=== PATIENT | male | born 1970 | race African-American/Black ===

== ENCOUNTER 2017-10-19 08:48 | Inpatient (IN) | payer OTHER ==
[2017-10-19 10:48] VITALS: BMI 39.7
--- NOTE | 2017-10-19 11:34 | HP ---
COWS - Scale Resting Pulse: 0= [place] 80 or Below Sweatin=Flushed/Facial Moisture Restless Observation: 1= Difficult to Sit Still Pupil Size: 0= Normal to Room Light Bone or Joint Aches: 2= Severe Diffuse Aches Runny Nose/ Eye Tearin= Runny Nose/Eyes GI Upset > 30mins: 1= Stomach Cramp Tremor Observation: 1= Tremor [place], Not Seen Yawning Observation: 1= 1-2x During Session Anxiety or Irritability: 2=Irritable/Anxious Goose Flesh Skin: 0=Smooth Skin COWS Score: 12 CIWA Score - CIWA Score Nausea/Vomitin-Mild Nausea/No Vomiting Muscle Tremors: 1-None Visible, but [place] Anxiety: 2 Agitation: 1-Slight > Activity Paroxysmal Sweats: 1-Minimal Palms Moist Orientation: 1-Uncertain about Date Tacttile Disturbances: 2-Mild Itch/Numbness/Burn Auditory Disturbances: 0-None Visual Disturbances: 0-None Headache: 3-Moderate CIWA-Ar Total Score: 12 Admission [facility] - HPI Chief Complaint: Patient presents for Heroin withdrawal symptoms. Allergies/Adverse Reactions: Allergies Allergy/AdvReac Type Severity Reaction Status Date / Time No Known Allergies Allergy Verified 10/19/17 10:04 History of Present Illness: Patient presents for Heroin Withdrawal symptoms. Started using heroin at age 22. Uses up to 30-35 bags daily. Sniffs heroin and denies injecting. Was treated last night at [facility] for overdose. States he was given Narcan. D/C and sent to [facility] for detox. Last detox attempt was in 2013 at [facility]. Also reports heroin mixed with cocaine, opiates and xanax. Denies drinking ETOH. Has history of peripheral neuropathy and treated with Gabapentin. Denies any history of seizures. No suicide attempts or suicide ideation. Exam Limitations: No Limitations - Ebola screening Have you traveled outside of the country in the last 21 days: No Have you had contact with anyone from an Ebola affected area: No Have you been sick,other than usual withdrawal symptoms: No - Review of Systems Constitutional: Night Sweats, Changes in sleep, Weight Stable EENT: reports: Nose Congestion Respiratory: reports: No Symptoms reported Cardiac: reports: No Symptoms Reported GI: reports: Poor Fluid Intake, Indigestion, Abdominal cramping : reports: No Symptoms Reported Musculoskeletal: reports: Joint Pain, Muscle Pain Integumentary: reports: Flushing, Sweating Neuro: reports: Tingling, Tremors Endocrine: reports: Increased Thirst Hematology: reports: No Symptoms Reported Psychiatric: reports: Anxious, Depressed, Disorientated (Unable to provide todays date.) Patient History - Patient Medical History Hx Anemia: No Hx Asthma: No Hx Chronic Obstructive Pulmonary Disease (COPD): No Hx Cancer: No Hx Cardiac Disorders: No Hx Congestive Heart Failure: No Hx Hypertension: No Hx Hypercholesterolemia: No Hx Pacemaker: No HX Cerebrovascular Accident: No Hx Seizures: No Hx Dementia: No Hx Diabetes: No Hx Gastrointestinal Disorders: No Hx Liver Disease: No Hx Genitourinary Disorders: No Hx Sexually Transmitted Disorders: No Hx Renal Disease (ESRD): No Hx Thyroid Disease: No Hx Human Immunodeficiency Virus (HIV): No Hx Hepatitis C: No Hx Depression: Yes Hx Suicide Attempt: No Hx Bipolar Disorder: No Hx Schizophrenia: No - Patient Surgical History Past Surgical History: No Hx Neurologic Surgery: No Hx Cataract Extraction: No Hx Cardiac Surgery: No Hx Lung Surgery: No Hx Breast Surgery: No Hx Breast Biopsy: No Hx Abdominal Surgery: No Hx Appendectomy: No Hx Cholecystectomy: No Hx Genitourinary Surgery: No Hx Section: No Hx Orthopedic Surgery: No Anesthesia Reaction: No - PPD History Previous Implant?: Yes Documented Results: Positive w/o proof Implanted On Prior [facility] Admission?: No - Smoking Cessation Smoking history: Current every day smoker Have you smoked in the past 12 months: Yes Aproximately how many cigarettes per day: 2 Hx Chewing Tobacco Use: No Initiated information on smoking cessation: Yes 'Breaking Loose' booklet given: 10/19/17 - Substance & Tx. History Hx Substance Use: Yes Substance Use Type: Cocaine, Heroin, Opiates Hx Substance Use Treatment: Yes - Substances Abused Heroin Route: Injection Frequency: Daily Amount used: 32 bags Age of first use: 23 Date of Last Use: 10/18/17 Cocaine Route: Inhalation Frequency: Daily Amount used: $10 Age of first use: 16 Date of Last Use: 10/17/17 Family Disease History - Family Disease History Family Disease History: Other: Father (HEROIN), Mother (ALCOHOL,COCAINE) Admission Physical Exam [facility] - Vital Signs Vital Signs: Vital Signs - 24 hr 10/19/17 10:44 Temperature 97.4 F L Pulse Rate 80 Respiratory 20 Rate Blood Pressure 121/60 - Physical General Appearance: Yes: Disheveled, Obese, Tremorous, Sweating, Anxious HEENTM: Yes: Hearing grossly Normal, Normocephalic, JULIAN, Nasal Congestion Respiratory: Yes: Within Normal Limits, Chest Non-Tender, Lungs Clear, Normal Breath Sounds Neck: Yes: Within Normal Limits, No masses,lesions,Nodules, Supple Breast: Yes: Breast Exam Deferred Cardiology: Yes: Within Normal Limits, Regular Rhythm, Regular Rate, S1, S2 Abdominal: Yes: Normal Bowel Sounds, Non Tender, Soft Genitourinary: Yes: Within Normal Limits Back: Yes: Muscle Spasm Musculoskeletal: Yes: Back pain, Muscle Pain Extremities: Yes: Normal Range of Motion, Tremors Neurological: Yes: Numbness, Disoriented (unable to provide todays date), Depressed Affect Integumentary: Yes: Normal Color, [place] Lymphatic: Yes: Within Normal Limits - Diagnostic (1) Peripheral neuropathy Current Visit: Yes Status: Acute (2) Cocaine dependence Current Visit: Yes Status: Active (3) Opioid dependence Current Visit: Yes Status: Active (4) Anxiety Current Visit: Yes Status: Acute (5) Depressed mood Current Visit: Yes Status: Acute (6) Positive PPD Current Visit: Yes Status: Acute Cleared for Admission [facility] - Detox or Rehab [facility] Level of Care: Medically Managed Detox Regimen/Protocol: Methadone [facility] Breath Alcohol Content Breath Alcohol Content: 0 Urine Drug Screen - Results Drug Screen Negative: No Urine Drug Screen Results: RIVAS-Cocaine, OPI-Opiates, BZO-Benzodiazepines Inpatient Rehab Admission - Initial Determination Are CD services needed?: Yes Free of communicable disease: Yes Not in need of hospitalization: Yes - Rehab Admission Criteria Previous failed treatment: Yes Poor recovery environment: Yes Comorbidities: Yes Lacks judgement: Yes
[2017-10-19] MEDS ORDERED: LOPERAMIDE HCL 2 MG CAPSULE PO PRN (11:39)
[2017-10-19] MEDS ORDERED: P-EPHED 60MG/TRIPROLIDI 2.5MG TABLET PO PRN (11:39)
[2017-10-19] MEDS ORDERED: IBUPROFEN 400 MG TABLET (FP) PO PRN (11:39)
[2017-10-19] MEDS ORDERED: MAGNESIUM HYDROX 2400MG/30ML ORAL SUSPENSION 30 ML CUP PO PRN (11:39)
[2017-10-19] MEDS ORDERED: MENTHOL/PHENOL 1 EACH UD MM PRN (11:39)
[2017-10-19] MEDS ORDERED: guaiFENesin/D-METHORPHAN HB 10 ML UNIT-DOSE CUPS PO PRN (11:39)
[2017-10-19] MEDS ORDERED: MAGNESIUM CITRATE 300 ML BOTTLE PO PRN (11:39)
[2017-10-19] MEDS ORDERED: ACETAMINOPHEN 325 MG TABLET (FP) PO PRN (11:39)
[2017-10-19] MEDS ORDERED: MAG HYDROX/AL HYDROX/SIMETH 30 ML UNIT-DOSE CUP PO PRN (11:39)
[2017-10-19] MEDS ORDERED: NICOTINE POLACRILEX 2 MG GUM BC PRN (11:39)
[2017-10-19] MEDS ORDERED: METHADONE HCL 10 MG TABLET (FOR DETOX USE ONLY) PO ONE ×2 (14:00→23:00)
[2017-10-19] MEDS: GABAPENTIN 300 MG CAPSULE (FP) PO SCH ×2 (15:09→22:38)
[2017-10-19] MEDS: diazePAM 5 MG TABLET PO PRN ×2 (15:09→22:38)
--- NOTE | 2017-10-19 15:50 | CONSULT ---
[facility] Psychiatric Consult - Data Date of interview: 10/19/17 Admission source: [facility] Identifying data: Readmission to [facility] for this 47 y/o AA male seeking detox treatment on for heroin and cocaine (crack) dependence.Patient is single without children,homeless,unemployed and supported on welfare. Substance Abuse History: Discussed with the patient.Patient endorses a 25 year history of heroin abuse (snorts up to 30-40 bags of heroin a day) and 30 years of crack abuse (spends 10 dollars a day). More details in current [facility] report : Smoking history: Current every day smoker. Have you smoked in the past 12 months: Yes. Aproximately how many cigarettes per day: 2. Hx Chewing Tobacco Use: No. Initiated information on smoking cessation: Yes. 'Breaking Loose' booklet given: 10/19/17. - Substance & Tx. History. Hx Substance Use: Yes. Substance Use Type: Cocaine, Heroin, Opiates. Hx Substance Use Treatment: Yes. - Substances Abused. Heroin. Route: Injection. Frequency: Daily. Amount used: 32 bags. Age of first use: 23. Date of Last Use: 10/18/17. Cocaine. Route: Inhalation. Frequency: Daily. Amount used: $10. Age of first use: 16. Date of Last Use: 10/17/17 Medical History: Obesity and peripheral neuropathy. Psychiatric History: Patient denies history of psychiatric hospitalizations.No OPD care.Mr Shipman denies having a mental disorder and he declares that he only gets prescribed hydroxyzine for insomnia.patient denies history of suicide attempts. Physical/Sexual Abuse/Trauma History: Not discussed in this session (patient not cooperative). Additional Comment: Urine Drug Screen Results: RIVAS-Cocaine, OPI-Opiates, BZO- Benzodiazepines.Noted. Mental Status Exam - Mental Status Exam Alert and Oriented to: Time, Place, Person Cognitive Function: Grossly Intact Patient Appearance: Unkempt, Disheveled (malodorous) Mood: Nervous, Withdrawn, Irritable Affect: Mood Congruent Patient Behavior: Fatigued, Uncooperative, Guarded Speech Pattern: Clear Voice Loudness: Normal Thought Process: Goal Oriented Thought Disorder: Bizarre Hallucinations: Denies Suicidal Ideation: Denies Homicidal Ideation: Denies Insight/Judgement: Poor Sleep: Poorly, Difficulty falling asleep Appetite: Good (observed eating his meal on admission) Muscle strength/Tone: Normal Gait/Station: Normal Psychiatric Findings - Problem List ([place] 1, 2,3) (1) Opioid dependence Current Visit: Yes Status: Active (2) Cocaine dependence Current Visit: Yes Status: Active (3) Nicotine dependence Current Visit: Yes Status: Acute (4) Substance induced mood disorder Current Visit: Yes Status: Acute (5) Insomnia Current Visit: Yes Status: Acute - Initial Treatment Plan Initial Treatment Plan: Psychoeducation.Records revisited.Detoxification initiated.Observation.
[2017-10-19] MEDS ORDERED: MELATONIN 5 MG TABLETS PO PRN (22:00)
[2017-10-19 22:10] LABS: URINE APPEARANCE SLCLOUDY; URINE BILIRUBIN NEGATIVE (<2.0 mg/dL); URINE BLOOD NEGATIVE (NEGATIVE); URINE COLOR AMBER; URINE GLUCOSE (UA) NEGATIVE (NEGATIVE); URINE KETONE NEGATIVE (NEGATIVE); URINE NITRITE NEGATIVE (NEGATIVE); URINE PROTEIN NEGATIVE (NEGATIVE); URINE UROBILINOGEN 4.0 E.U/dl mg/dL (0.2-1.0)
[2017-10-19 22:11] LABS: URINE LEUK ESTERASE 2+ (NEGATIVE)
[2017-10-19 22:16] LABS: CALCIUM OXALATE CRYSTALS FEW /hpf (NONE SEEN); EPI CELLS RARE /HPF (FEW); URINE MUCUS MANY
[2017-10-19] MEDS: THIAMINE HCL 100 MG TABLET (FP) PO SCH (22:38)
[2017-10-20] MEDS: diazePAM 5 MG TABLET PO PRN ×4 (05:48→22:36)
[2017-10-20] MEDS: GABAPENTIN 300 MG CAPSULE (FP) PO SCH ×3 (05:48→22:36)
[2017-10-20] MEDS ORDERED: METHADONE HCL 10 MG TABLET (FOR DETOX USE ONLY) PO ONE (10:00)
[2017-10-20 10:20] LABS: HEMATOCRIT 40.8 % (35.4-49); HEMOGLOBIN 14.1 GM/dL (11.7-16.9); MCH 32.6 pg (25.7-33.7); MCHC 34.6 g/dl (32.0-35.9); MEAN CELL VOLUME 94.4 fl (80-96); MEAN PLT VOLUME 9.4 fl (7.5-11.1); PLATELET COUNT 244 K/MM3 (134-434); RBC 4.32 M/mm3 (4.00-5.60); WHITE BLOOD COUNT 7.7 K/mm3 (4.0-10.0)
[2017-10-20] MEDS: NICOTINE 21 MG/24 HOURS TOPICAL PATCH TD SCH (10:23)
[2017-10-20] MEDS: PRENATAL VITAMINS W/ FOLIC ACID TABLET (FP) PO SCH (10:23)
[2017-10-20] MEDS: hydrOXYzine PAMOATE 50 MG CAPSULE (FP) PO PRN ×3 (10:25→22:37)
[2017-10-20 11:32] LABS: ALBUMIN 3.6 g/dl (3.4-5.0); ANION GAP 8 (8-16); BLOOD UREA NITROGEN 15 mg/dL (7-18); CHLORIDE 105 mmol/L (98-107); CO2 26 mmol/L (21-32); GLUCOSE,RANDOM 85 mg/dL (74-106); POTASSIUM 5.3 mmol/L (3.5-5.1); SODIUM 139 mmol/L (136-145)
[2017-10-20 11:35] LABS: ALK PHOS 127 U/L (45-117); BILIRUBIN,TOTAL 0.5 mg/dL (0.2-1.0); CREATININE 0.9 mg/dL (0.7-1.3); SGOT/AST 75 U/L (15-37); SGPT/ALT 75 U/L (12-78); TOT PROT 7.4 g/dl (6.4-8.2)
--- NOTE | 2017-10-20 11:44 | EKG ---
Test Reason : Blood Pressure : / mmHG Vent. Rate : 068 BPM Atrial Rate : 068 BPM P-R Int : 220 ms QRS Dur : 100 ms QT Int : 430 ms P-R-T Axes : 026 -04 003 degrees QTc Int : 457 ms SINUS RHYTHM WITH 1ST DEGREE A-V BLOCK OTHERWISE NORMAL ECG WHEN COMPARED WITH ECG OF 19-OCT-2017 15:16, QT HAS SHORTENED Confirmed by MARII KOWALSKI MD ([id number]) on 10/20/2017 11:44:08 AM Referred By: Confirmed By:MARII KOWALSKI MD
--- NOTE | 2017-10-20 11:45 | EKG ---
Test Reason : Blood Pressure : / mmHG Vent. Rate : 091 BPM Atrial Rate : 091 BPM P-R Int : 194 ms QRS Dur : 102 ms QT Int : 454 ms P-R-T Axes : 062 002 013 degrees QTc Int : 558 ms NORMAL SINUS RHYTHM PROLONGED QT ABNORMAL ECG NO PREVIOUS ECGS AVAILABLE Confirmed by MARII KOWALSKI MD ([id number]) on 10/20/2017 11:44:58 AM Referred By: Confirmed By:MARII KOWALSKI MD
--- NOTE | 2017-10-20 14:14 | PN ---
[facility] CIWA - CIWA Score Nausea/Vomitin-No Nausea/No Vomiting Muscle Tremors: 4-Moderate,w/Arms Extend Anxiety: 4-Mod. Anxious/Guarded Paroxysmal Sweats: 1-Minimal Palms Moist Tacttile Disturbances: 3-Moderate Itch/Numb/Burn Auditory Disturbances: 0-None Visual Disturbances: 0-None Headache: 0-None Present S COWS - Scale Resting Pulse: 0= [place] 80 or Below Sweatin= Chills/Flushing Restless Observation: 0= Sits Still Pupil Size: 2= Moderately Dilated Bone or Joint Aches: 4=Acute Joint/Muscle Pain Runny Nose/ Eye Tearin= Nasal Congestion GI Upset > 30mins: 0= None Tremor Observation of Outstretched Hands: 2= Slight Tremor Visible Yawning Observation: 1= 1-2x During Session Anxiety or Irritability: 2=Irritable/Anxious Goose Flesh Skin: 0=Smooth Skin COWS Score: 13 S Progress Note (SOAP) Subjective: ANXIETY,SLIGHT TREMORS,SWEATS,INTERMITTENT SLEEP. Objective: 10/20/17 15:17 Vital Signs Temperature 96.7 F L 10/20/17 13:26 Pulse Rate 79 10/20/17 13:26 Respiratory Rate 18 10/20/17 13:26 Blood Pressure 119/64 10/20/17 13:26 O2 Sat by Pulse Oximetry (%) Laboratory Last Values WBC 7.7 K/mm3 (4.0-10.0) 10/20/17 06:00 RBC 4.32 M/mm3 (4.00-5.60) 10/20/17 06:00 Hgb 14.1 GM/dL (11.7-16.9) 10/20/17 06:00 Hct 40.8 % (35.4-49) 10/20/17 06:00 MCV 94.4 fl (80-96) 10/20/17 06:00 MCH 32.6 pg (25.7-33.7) 10/20/17 06:00 MCHC 34.6 g/dl (32.0-35.9) 10/20/17 06:00 RDW 13.0 % (11.9-15.9) 10/20/17 06:00 Plt Count 244 K/MM3 (134-434) 10/20/17 06:00 MPV 9.4 fl (7.5-11.1) 10/20/17 06:00 Sodium 139 mmol/L (136-145) 10/20/17 06:00 Potassium 5.3 mmol/L (3.5-5.1) H D 10/20/17 06:00 Chloride 105 mmol/L (98-107) 10/20/17 06:00 Carbon Dioxide 26 mmol/L (21-32) 10/20/17 06:00 Anion Gap 8 (8-16) 10/20/17 06:00 BUN 15 mg/dL (7-18) D 10/20/17 06:00 Creatinine 0.9 mg/dL (0.7-1.3) D 10/20/17 06:00 Creat Clearance w eGFR > 60 (>60) 10/20/17 06:00 Random Glucose 85 mg/dL (74-106) D 10/20/17 06:00 Calcium 9.0 mg/dL (8.5-10.1) 10/20/17 06:00 Total Bilirubin 0.5 mg/dL (0.2-1.0) D 10/20/17 06:00 AST 75 U/L (15-37) H D 10/20/17 06:00 ALT 75 U/L (12-78) D 10/20/17 06:00 Alkaline Phosphatase 127 U/L (45-117) H 10/20/17 06:00 Total Protein 7.4 g/dl (6.4-8.2) 10/20/17 06:00 Albumin 3.6 g/dl (3.4-5.0) 10/20/17 06:00 Urine Color Emma 10/19/17 21:00 Urine Appearance Slcloudy 10/19/17 21:00 Urine pH 7.0 (5.0-8.0) D 10/19/17 21:00 Ur Specific [place] 1.028 (1.001-1.035) 10/19/17 21:00 Urine Protein Negative (NEGATIVE) 10/19/17 21:00 Urine Glucose (UA) Negative (NEGATIVE) 10/19/17 21:00 Urine Ketones Negative (NEGATIVE) 10/19/17 21:00 Urine Blood Negative (NEGATIVE) 10/19/17 21:00 Urine Nitrite Negative (NEGATIVE) 10/19/17 21:00 Urine Bilirubin Negative (<2.0 mg/dL) 10/19/17 21:00 Urine Urobilinogen 4.0 e.u/dl mg/dL (0.2-1.0) 10/19/17 21:00 Ur Leukocyte Esterase 2+ (NEGATIVE) H 10/19/17 21:00 Urine WBC (Auto) 46 /hpf (3-5) 10/19/17 21:00 Urine RBC (Auto) 7 /hpf (0-3) 10/19/17 21:00 Ur Epithelial Cells Rare /HPF (FEW) 10/19/17 21:00 Calcium Oxalate Crystal Few /hpf (NONE SEEN) 10/19/17 21:00 Urine Mucus Many 10/19/17 21:00 RPR Titer Nonreactive (NONREACTIVE) 10/20/17 06:00 LABS NOTED REPEAT UA;UC ORDERED REPEAT k+ ORDERED Assessment: 10/20/17 15:18 WITHDRAWAL SX BORDERLINE HYPERKALEMIA Plan: CONTINUE DETOX INCREASE PO FLUIDS REPEAT K+ ;UA AND UC
[2017-10-20 17:51] LABS: URINE APPEARANCE CLEAR; URINE BILIRUBIN NEGATIVE (<2.0 mg/dL); URINE BLOOD NEGATIVE (NEGATIVE); URINE COLOR LTYELLOW; URINE GLUCOSE (UA) NEGATIVE (NEGATIVE); URINE KETONE NEGATIVE (NEGATIVE); URINE LEUK ESTERASE NEGATIVE (NEGATIVE); URINE NITRITE NEGATIVE (NEGATIVE); URINE PROTEIN NEGATIVE (NEGATIVE); URINE UROBILINOGEN 4.0 E.U/dl mg/dL (0.2-1.0)
[2017-10-20] MEDS: THIAMINE HCL 100 MG TABLET (FP) PO SCH (22:36)
[2017-10-21] MEDS: hydrOXYzine PAMOATE 50 MG CAPSULE (FP) PO PRN ×2 (05:55→10:32)
[2017-10-21] MEDS: GABAPENTIN 300 MG CAPSULE (FP) PO SCH ×3 (05:55→22:14)
[2017-10-21] MEDS: diazePAM 5 MG TABLET PO PRN ×2 (08:23→14:23)
[2017-10-21] MEDS ORDERED: METHADONE HCL 5 MG TABLET (FOR DETOX USE ONLY) PO ONE (10:00)
[2017-10-21] MEDS: PRENATAL VITAMINS W/ FOLIC ACID TABLET (FP) PO SCH (10:30)
[2017-10-21] MEDS: NICOTINE 21 MG/24 HOURS TOPICAL PATCH TD SCH (10:30)
--- NOTE | 2017-10-21 12:24 | PN ---
S CIWA - CIWA Score Nausea/Vomitin-No Nausea/No Vomiting Muscle Tremors: 3 Anxiety: 4-Mod. Anxious/Guarded Agitation: 3 Paroxysmal Sweats: No Perspiration Orientation: 0-Oriented Tacttile Disturbances: 3-Moderate Itch/Numb/Burn Auditory Disturbances: 0-None Visual Disturbances: 0-None Headache: 0-None Present CIWA-Ar Total Score: 13 BHS COWS - Scale Resting Pulse: 0= [place] 80 or Below Sweatin= Chills/Flushing Restless Observation: 3= Extraneous Movement Pupil Size: 2= Moderately Dilated Bone or Joint Aches: 4=Acute Joint/Muscle Pain Runny Nose/ Eye Tearin= None GI Upset > 30mins: 0= None Tremor Observation of Outstretched Hands: 1= Tremor [place], Not Seen Yawning Observation: 1= 1-2x During Session Anxiety or Irritability: 2=Irritable/Anxious Goose Flesh Skin: 0=Smooth Skin COWS Score: 14 S Progress Note (SOAP) Subjective: ANXIETY,IRRITABILITY,SWEATS,INTERMITTENT SLEEP Objective: 10/21/17 12:32 Vital Signs Temperature 97.1 F L 10/21/17 09:18 Pulse Rate 78 10/21/17 09:18 Respiratory Rate 18 10/21/17 09:18 Blood Pressure 106/77 10/21/17 09:18 O2 Sat by Pulse Oximetry (%) Laboratory Last Values WBC 7.7 K/mm3 (4.0-10.0) 10/20/17 06:00 RBC 4.32 M/mm3 (4.00-5.60) 10/20/17 06:00 Hgb 14.1 GM/dL (11.7-16.9) 10/20/17 06:00 Hct 40.8 % (35.4-49) 10/20/17 06:00 MCV 94.4 fl (80-96) 10/20/17 06:00 MCH 32.6 pg (25.7-33.7) 10/20/17 06:00 MCHC 34.6 g/dl (32.0-35.9) 10/20/17 06:00 RDW 13.0 % (11.9-15.9) 10/20/17 06:00 Plt Count 244 K/MM3 (134-434) 10/20/17 06:00 MPV 9.4 fl (7.5-11.1) 10/20/17 06:00 Sodium 139 mmol/L (136-145) 10/20/17 06:00 Potassium 4.5 mmol/L (3.5-5.1) 10/20/17 14:50 Chloride 105 mmol/L (98-107) 10/20/17 06:00 Carbon Dioxide 26 mmol/L (21-32) 10/20/17 06:00 Anion Gap 8 (8-16) 10/20/17 06:00 BUN 15 mg/dL (7-18) D 10/20/17 06:00 Creatinine 0.9 mg/dL (0.7-1.3) D 10/20/17 06:00 Creat Clearance w eGFR > 60 (>60) 10/20/17 06:00 Random Glucose 85 mg/dL (74-106) D 10/20/17 06:00 Calcium 9.0 mg/dL (8.5-10.1) 10/20/17 06:00 Total Bilirubin 0.5 mg/dL (0.2-1.0) D 10/20/17 06:00 AST 75 U/L (15-37) H D 10/20/17 06:00 ALT 75 U/L (12-78) D 10/20/17 06:00 Alkaline Phosphatase 127 U/L (45-117) H 10/20/17 06:00 Total Protein 7.4 g/dl (6.4-8.2) 10/20/17 06:00 Albumin 3.6 g/dl (3.4-5.0) 10/20/17 06:00 Urine Color Ltyellow 10/20/17 14:50 Urine Appearance Clear 10/20/17 14:50 Urine pH 7.0 (5.0-8.0) 10/20/17 14:50 Ur Specific [place] 1.016 (1.001-1.035) 10/20/17 14:50 Urine Protein Negative (NEGATIVE) 10/20/17 14:50 Urine Glucose (UA) Negative (NEGATIVE) 10/20/17 14:50 Urine Ketones Negative (NEGATIVE) 10/20/17 14:50 Urine Blood Negative (NEGATIVE) 10/20/17 14:50 Urine Nitrite Negative (NEGATIVE) 10/20/17 14:50 Urine Bilirubin Negative (<2.0 mg/dL) 10/20/17 14:50 Urine Urobilinogen 4.0 e.u/dl mg/dL (0.2-1.0) 10/20/17 14:50 Ur Leukocyte Esterase Negative (NEGATIVE) 10/20/17 14:50 Urine WBC (Auto) 46 /hpf (3-5) 10/19/17 21:00 Urine RBC (Auto) 7 /hpf (0-3) 10/19/17 21:00 Ur Epithelial Cells Rare /HPF (FEW) 10/19/17 21:00 Calcium Oxalate Crystal Few /hpf (NONE SEEN) 10/19/17 21:00 Urine Mucus Many 10/19/17 21:00 RPR Titer Nonreactive (NONREACTIVE) 10/20/17 06:00 Laboratory Tests 10/19/17 10/20/17 10/20/17 21:00 06:00 06:00 WBC 7.7 RBC 4.32 Hgb 14.1 Hct 40.8 MCV 94.4 MCH 32.6 MCHC 34.6 RDW 13.0 Plt Count 244 MPV 9.4 Sodium 139 Potassium 5.3 H D Chloride 105 Carbon Dioxide 26 Anion Gap 8 BUN 15 D Creatinine 0.9 D Creat Clearance w eGFR > 60 Random Glucose 85 D Calcium 9.0 Total Bilirubin 0.5 D AST 75 H D ALT 75 D Alkaline Phosphatase 127 H Total Protein 7.4 Albumin 3.6 Urine Color Emma Urine Appearance Slcloudy Urine pH 7.0 D Ur Specific [place] 1.028 Urine Protein Negative Urine Glucose (UA) Negative Urine Ketones Negative Urine Blood Negative Urine Nitrite Negative Urine Bilirubin Negative Urine Urobilinogen 4.0 e.u/dl Ur Leukocyte Esterase 2+ H Urine WBC (Auto) 46 Urine RBC (Auto) 7 Ur Epithelial Cells Rare Calcium Oxalate Crystal Few Urine Mucus Many RPR Titer 10/20/17 10/20/17 10/20/17 06:00 14:50 14:50 WBC RBC Hgb Hct MCV MCH MCHC RDW Plt Count MPV Sodium Potassium 4.5 Chloride Carbon Dioxide Anion Gap BUN Creatinine Creat Clearance w eGFR Random Glucose Calcium Total Bilirubin AST ALT Alkaline Phosphatase Total Protein Albumin Urine Color Ltyellow Urine Appearance Clear Urine pH 7.0 Ur Specific [place] 1.016 Urine Protein Negative Urine Glucose (UA) Negative Urine Ketones Negative Urine Blood Negative Urine Nitrite Negative Urine Bilirubin Negative Urine Urobilinogen 4.0 e.u/dl Ur Leukocyte Esterase Negative Urine WBC (Auto) Urine RBC (Auto) Ur Epithelial Cells Calcium Oxalate Crystal Urine Mucus RPR Titer Nonreactive UA WNL UC RESULT PENDING REPEAT K+ = 4.5 CORRECTED CXR = NO ACUTE PATHOLOGY. NO CHANGE. Assessment: 10/21/17 12:32 WITHDRAWAL SX Plan: CONTINUE DETOX INCREASE PO FLUIDS
[2017-10-21] MEDS: THIAMINE HCL 100 MG TABLET (FP) PO SCH (22:14)
[2017-10-22] MEDS: GABAPENTIN 300 MG CAPSULE (FP) PO SCH ×3 (05:51→22:32)
[2017-10-22] MEDS: diazePAM 5 MG TABLET PO PRN ×2 (05:51→10:18)
[2017-10-22] MEDS ORDERED: METHADONE HCL 5 MG TABLET (FOR DETOX USE ONLY) PO ONE (10:00)
[2017-10-22] MEDS: PRENATAL VITAMINS W/ FOLIC ACID TABLET (FP) PO SCH (10:18)
[2017-10-22] MEDS: NICOTINE 21 MG/24 HOURS TOPICAL PATCH TD SCH (10:19)
[2017-10-22] MEDS: hydrOXYzine PAMOATE 50 MG CAPSULE (FP) PO PRN ×2 (12:14→22:33)
--- NOTE | 2017-10-22 17:35 | PN ---
BHS Progress Note (SOAP) Subjective: Body Aches, Fatigue Anxious. Objective: PATIENT A & O X 2 (UNCERTAIN ABOUT CURRENT DAY/ DATE. NO ACUTE DISTRESS. 10/22/17 17:33 Vital Signs Temperature 96.3 F L 10/22/17 17:24 Pulse Rate 65 10/22/17 17:24 Respiratory Rate 18 10/22/17 17:24 Blood Pressure 104/56 10/22/17 17:24 O2 Sat by Pulse Oximetry (%) Laboratory Tests 10/19/17 10/20/17 10/20/17 21:00 06:00 06:00 WBC 7.7 RBC 4.32 Hgb 14.1 Hct 40.8 MCV 94.4 MCH 32.6 MCHC 34.6 RDW 13.0 Plt Count 244 MPV 9.4 Sodium 139 Potassium 5.3 H D Chloride 105 Carbon Dioxide 26 Anion Gap 8 BUN 15 D Creatinine 0.9 D Creat Clearance w eGFR > 60 Random Glucose 85 D Calcium 9.0 Total Bilirubin 0.5 D AST 75 H D ALT 75 D Alkaline Phosphatase 127 H Total Protein 7.4 Albumin 3.6 Urine Color Emma Urine Appearance Slcloudy Urine pH 7.0 D Ur Specific [place] 1.028 Urine Protein Negative Urine Glucose (UA) Negative Urine Ketones Negative Urine Blood Negative Urine Nitrite Negative Urine Bilirubin Negative Urine Urobilinogen 4.0 e.u/dl Ur Leukocyte Esterase 2+ H Urine WBC (Auto) 46 Urine RBC (Auto) 7 Ur Epithelial Cells Rare Calcium Oxalate Crystal Few Urine Mucus Many RPR Titer 10/20/17 10/20/17 10/20/17 06:00 14:50 14:50 WBC RBC Hgb Hct MCV MCH MCHC RDW Plt Count MPV Sodium Potassium 4.5 Chloride Carbon Dioxide Anion Gap BUN Creatinine Creat Clearance w eGFR Random Glucose Calcium Total Bilirubin AST ALT Alkaline Phosphatase Total Protein Albumin Urine Color Ltyellow Urine Appearance Clear Urine pH 7.0 Ur Specific [place] 1.016 Urine Protein Negative Urine Glucose (UA) Negative Urine Ketones Negative Urine Blood Negative Urine Nitrite Negative Urine Bilirubin Negative Urine Urobilinogen 4.0 e.u/dl Ur Leukocyte Esterase Negative Urine WBC (Auto) Urine RBC (Auto) Ur Epithelial Cells Calcium Oxalate Crystal Urine Mucus RPR Titer Nonreactive LABS NOTED. RESULTS OF URINE C + S NOTED. 10/22/17 17:35 Assessment: 10/22/17 17:34 WITHDRAWAL SYMPTOMS. Plan: CONTINUE DETOX.
[2017-10-22] MEDS: THIAMINE HCL 100 MG TABLET (FP) PO SCH (22:32)
[2017-10-23] MEDS: GABAPENTIN 300 MG CAPSULE (FP) PO SCH ×3 (06:01→22:12)
[2017-10-23] MEDS ORDERED: METHADONE HCL 10 MG TABLET (FOR DETOX USE ONLY) PO ONE (10:00)
[2017-10-23] MEDS: NICOTINE 21 MG/24 HOURS TOPICAL PATCH TD SCH (10:22)
[2017-10-23] MEDS: PRENATAL VITAMINS W/ FOLIC ACID TABLET (FP) PO SCH (10:22)
[2017-10-23] MEDS: hydrOXYzine PAMOATE 50 MG CAPSULE (FP) PO PRN ×3 (10:22→22:12)
--- NOTE | 2017-10-23 11:53 | PN ---
BHS Progress Note (SOAP) Subjective: irritable sweats body aches Objective: 10/23/17 11:53 Vital Signs Temperature 97.6 F 10/23/17 11:04 Pulse Rate 64 10/23/17 11:04 Respiratory Rate 20 10/23/17 11:04 Blood Pressure 124/94 10/23/17 11:04 O2 Sat by Pulse Oximetry (%) aaox3 ambulating no acute distress Assessment: 10/23/17 11:53 withdrawal sx Plan: continue detox d/c in am
[2017-10-23] MEDS: THIAMINE HCL 100 MG TABLET (FP) PO SCH (22:12)
[2017-10-24] MEDS: GABAPENTIN 300 MG CAPSULE (FP) PO SCH ×2 (05:53→14:05)
[2017-10-24] MEDS ORDERED: METHADONE HCL 5 MG TABLET (FOR DETOX USE ONLY) PO ONE (06:00)
[2017-10-24 09:14] VITALS: BP 113/64; PULSE 73; TEMP 98
[2017-10-24] MEDS: NICOTINE 21 MG/24 HOURS TOPICAL PATCH TD SCH (11:11)
[2017-10-24] MEDS: PRENATAL VITAMINS W/ FOLIC ACID TABLET (FP) PO SCH (11:11)
--- NOTE | 2017-10-24 13:13 | PN ---
S Progress Note (SOAP) Subjective: Patient denies any current Detox symptoms and reports that he feels well overall. Objective: PATIENT A & O X 3, OBSERVED AMBULATING ON UNIT. NO ACUTE DISTRESS. 10/24/17 13:11 Vital Signs Temperature 98.0 F 10/24/17 09:13 Pulse Rate 73 10/24/17 09:13 Respiratory Rate 18 10/24/17 09:13 Blood Pressure 113/64 10/24/17 09:13 O2 Sat by Pulse Oximetry (%) Laboratory Tests 10/19/17 10/20/17 10/20/17 21:00 06:00 06:00 WBC 7.7 RBC 4.32 Hgb 14.1 Hct 40.8 MCV 94.4 MCH 32.6 MCHC 34.6 RDW 13.0 Plt Count 244 MPV 9.4 Sodium 139 Potassium 5.3 H D Chloride 105 Carbon Dioxide 26 Anion Gap 8 BUN 15 D Creatinine 0.9 D Creat Clearance w eGFR > 60 Random Glucose 85 D Calcium 9.0 Total Bilirubin 0.5 D AST 75 H D ALT 75 D Alkaline Phosphatase 127 H Total Protein 7.4 Albumin 3.6 Urine Color Emma Urine Appearance Slcloudy Urine pH 7.0 D Ur Specific [place] 1.028 Urine Protein Negative Urine Glucose (UA) Negative Urine Ketones Negative Urine Blood Negative Urine Nitrite Negative Urine Bilirubin Negative Urine Urobilinogen 4.0 e.u/dl Ur Leukocyte Esterase 2+ H Urine WBC (Auto) 46 Urine RBC (Auto) 7 Ur Epithelial Cells Rare Calcium Oxalate Crystal Few Urine Mucus Many RPR Titer 10/20/17 10/20/17 10/20/17 06:00 14:50 14:50 WBC RBC Hgb Hct MCV MCH MCHC RDW Plt Count MPV Sodium Potassium 4.5 Chloride Carbon Dioxide Anion Gap BUN Creatinine Creat Clearance w eGFR Random Glucose Calcium Total Bilirubin AST ALT Alkaline Phosphatase Total Protein Albumin Urine Color Ltyellow Urine Appearance Clear Urine pH 7.0 Ur Specific [place] 1.016 Urine Protein Negative Urine Glucose (UA) Negative Urine Ketones Negative Urine Blood Negative Urine Nitrite Negative Urine Bilirubin Negative Urine Urobilinogen 4.0 e.u/dl Ur Leukocyte Esterase Negative Urine WBC (Auto) Urine RBC (Auto) Ur Epithelial Cells Calcium Oxalate Crystal Urine Mucus RPR Titer Nonreactive LABS NOTED. Assessment: 10/24/17 13:12 COMPLETION OF DETOX REGIMEN. Plan: PATIENT SCHEDULED FOR DISCHARGE FROM DETOX TODAY. PATIENT SCHEDULED TO GO TO [facility] FOR AFTERCARE.
[2017-10-24] MEDS: hydrOXYzine PAMOATE 50 MG CAPSULE (FP) PO PRN (14:05)
--- NOTE | 2017-10-24 14:14 | DS ---
[facility] Detox Discharge Summary Admission Date: 10/19/17 Discharge Date: 10/24/17 - History Present History: Cocaine Dependence, Opioid Dependence Additional Comments: PATIENT GOING TO [facility] ([facility] FOR AFTERCARE. PATIENT WAS DISCHARGED FROM DETOX UNIT IN STABLE MEDICAL CONDITION. Pertinent Past History: Depression, Insomnia, Nicotine Dependence, Anxiety, History of Positive PPD, Peripheral Neuropathy. - Physical Exam Results Vital Signs: Vital Signs Temperature 98.0 F 10/24/17 09:13 Pulse Rate 73 10/24/17 09:13 Respiratory Rate 18 10/24/17 09:13 Blood Pressure 113/64 10/24/17 09:13 O2 Sat by Pulse Oximetry (%) Pertinent Admission Physical Exam Findings: WITHDRAWAL SYMPTOMS. Laboratory Tests 10/19/17 10/20/17 10/20/17 21:00 06:00 06:00 WBC 7.7 RBC 4.32 Hgb 14.1 Hct 40.8 MCV 94.4 MCH 32.6 MCHC 34.6 RDW 13.0 Plt Count 244 MPV 9.4 Sodium 139 Potassium 5.3 H D Chloride 105 Carbon Dioxide 26 Anion Gap 8 BUN 15 D Creatinine 0.9 D Creat Clearance w eGFR > 60 Random Glucose 85 D Calcium 9.0 Total Bilirubin 0.5 D AST 75 H D ALT 75 D Alkaline Phosphatase 127 H Total Protein 7.4 Albumin 3.6 Urine Color Emma Urine Appearance Slcloudy Urine pH 7.0 D Ur Specific [place] 1.028 Urine Protein Negative Urine Glucose (UA) Negative Urine Ketones Negative Urine Blood Negative Urine Nitrite Negative Urine Bilirubin Negative Urine Urobilinogen 4.0 e.u/dl Ur Leukocyte Esterase 2+ H Urine WBC (Auto) 46 Urine RBC (Auto) 7 Ur Epithelial Cells Rare Calcium Oxalate Crystal Few Urine Mucus Many RPR Titer 10/20/17 10/20/17 10/20/17 06:00 14:50 14:50 WBC RBC Hgb Hct MCV MCH MCHC RDW Plt Count MPV Sodium Potassium 4.5 Chloride Carbon Dioxide Anion Gap BUN Creatinine Creat Clearance w eGFR Random Glucose Calcium Total Bilirubin AST ALT Alkaline Phosphatase Total Protein Albumin Urine Color Ltyellow Urine Appearance Clear Urine pH 7.0 Ur Specific [place] 1.016 Urine Protein Negative Urine Glucose (UA) Negative Urine Ketones Negative Urine Blood Negative Urine Nitrite Negative Urine Bilirubin Negative Urine Urobilinogen 4.0 e.u/dl Ur Leukocyte Esterase Negative Urine WBC (Auto) Urine RBC (Auto) Ur Epithelial Cells Calcium Oxalate Crystal Urine Mucus RPR Titer Nonreactive LABS NOTED. - Treatment Hospital Course: Detox Protocol Followed, Detoxed Safely, Responded well, Discharged Condition Good, Rehab Referral Accepted Patient has Accepted a Rehab Referral to: [facility] ([facility] . - Medication Discharge Medications: Ambulatory Orders Gabapentin [Neurontin -] 300 mg PO Q8H 10/19/17 - Diagnosis (1) Cocaine dependence, uncomplicated Current Visit: Yes Status: Acute (2) Nicotine dependence Current Visit: Yes Status: Acute Qualifiers: Nicotine product type: cigarettes Substance use status: in withdrawal Qualified Code(s): F17.213 - Nicotine dependence, cigarettes, with withdrawal (3) Opioid dependence with withdrawal Current Visit: Yes Status: Acute (4) Peripheral neuropathy Current Visit: Yes Status: Chronic Qualifiers: Peripheral neuropathy type: polyneuropathy, unspecified Qualified Code(s): G62.9 - Polyneuropathy, unspecified (5) Insomnia Current Visit: Yes Status: Acute Qualifiers: Insomnia type: unspecified Qualified Code(s): G47.00 - Insomnia, unspecified (6) Substance induced mood disorder Current Visit: Yes Status: Acute - AMA Did Patient Leave Against Medical Advice: No
== END 2017-10-24 14:40 | disposition other institution (70) | DRG 773 ==
LOC: YASAS 08:48 → Y3N 13:52
PROVIDERS: ADMIT Internal Medicine; ATTEND Internal Medicine
PROC: HZ2ZZZZ Detoxification Services for Substance Abuse Treatment (ICD-10-PCS; principal; 2017-10-19)
DX: F11.23 Opioid dependence with withdrawal (principal); F14.20 Cocaine dependence, uncomplicated; F17.210 Nicotine dependence, cigarettes, uncomplicated; F32.9 Major depressive disorder, single episode, unspecified; F41.9 Anxiety disorder, unspecified; F19.24 Other psychoactive substance dependence with psychoactive substance-induced mood disorder; G47.00 Insomnia, unspecified; G62.9 Polyneuropathy, unspecified; R76.11 Nonspecific reaction to tuberculin skin test without active tuberculosis
CPT/HCPCS: 36415; 71046-TC-FY; 80053; 81003; 81015; 84132; 85027; 86593; 87086; 93005; 93010

== ENCOUNTER 2017-10-24 14:57 | Inpatient (IN) | payer OTHER ==
--- NOTE | 2017-10-24 13:17 | HP ---
CHERELLE PÉREZ Rehab Assess/Revision - Admission History Admitted to Rehab from: [facility] Date of Admission to Rehab: 10/24/2017 - Vital signs Vital Signs: NOTED; STABLE. - Findings Detox History & Physical reviewed: Yes Concur with findings: Yes Comments/Additional Findings: PATIENT'S MEDICAL / MEDICATION HISTORY REVIEWED PRIOR TO DISCHARGE FROM DETOX UNIT. PATIENT WAS DISCHARGED FROM DETOX UNIT TO BE TAKEN TO REHAB UNIT NI STABLE MEDICAL CONDITION. Inpatient Rehab Admission - Initial Determination Are CD services needed?: Yes Free of communicable disease: Yes Not in need of hospitalization: Yes - Rehab Admission Criteria Previous failed treatment: Yes Comorbidities: Yes Patient is meeting Inpatient Rehab admission criteria:: Yes
[~2017-10-24 14:57] MED LIST: ACETAMINOPHEN 325 MG TABLET (FP) PO PRN; IBUPROFEN 400 MG TABLET (FP) PO PRN; LOPERAMIDE HCL 2 MG CAPSULE PO PRN; MAG HYDROX/AL HYDROX/SIMETH 30 ML UNIT-DOSE CUP PO PRN; MAGNESIUM CITRATE 300 ML BOTTLE PO PRN; MAGNESIUM HYDROX 2400MG/30ML ORAL SUSPENSION 30 ML CUP PO PRN; MENTHOL/PHENOL 1 EACH UD MM PRN; P-EPHED 60MG/TRIPROLIDI 2.5MG TABLET PO PRN; guaiFENesin/D-METHORPHAN HB 10 ML UNIT-DOSE CUPS PO PRN
[2017-10-24] MEDS: GABAPENTIN 300 MG CAPSULE (FP) PO SCH ×2 (15:39→21:26)
[2017-10-24] MEDS: THIAMINE HCL 100 MG TABLET (FP) PO SCH (21:26)
[2017-10-24] MEDS: NICOTINE POLACRILEX 2 MG GUM BUC PRN (21:28)
[2017-10-24] MEDS ORDERED: MELATONIN 5 MG TABLETS PO PRN (22:00)
[2017-10-25] MEDS: hydrOXYzine PAMOATE 50 MG CAPSULE (FP) PO PRN ×2 (06:28→17:19)
[2017-10-25] MEDS: GABAPENTIN 300 MG CAPSULE (FP) PO SCH ×3 (06:28→21:10)
[2017-10-25] MEDS: PRENATAL VITAMINS W/ FOLIC ACID TABLET (FP) PO SCH (09:55)
[2017-10-25] MEDS: NICOTINE 21 MG/24 HOURS TOPICAL PATCH TD SCH (09:55)
--- NOTE | 2017-10-25 11:35 | HP ---
Psychiatrist Admission - Data Date of interview: 10/25/17 Identifying data: This is the first 5N inpatient rehabilitation admission for this 47 year old AA male who is single without children, currently homeless and unemployed, supported on welfare. Medical History: Obesity, smokes 2 cigarettes a day. Psychiatric History: Patient reports twas treated for depression and anxiety, [facility]ris [facility] [place] and prescribed Paxil 10 mg po hs, states he tried Trazodone , Elavil, Sineqan in the past without good responce, states his pain management MD gave his Klonopin 2 mg po hs and Ambien for insomnia. he is willing to restart Paxil. No history of psychiatric hospitalizations. Physical/Sexual Abuse/Trauma History: Denies history of sexual, physical and verbal abuse. Vital Signs: Vital Signs - 24 hr 10/24/17 10/25/17 10/25/17 15:22 00:30 03:30 Temperature 99 F Pulse Rate 73 Respiratory 18 20 20 Rate Blood Pressure 106/59 10/25/17 07:19 Temperature 98.1 F Pulse Rate 63 Respiratory 20 Rate Blood Pressure 116/65 Allergies/Adverse Reactions: Allergies Allergy/AdvReac Type Severity Reaction Status Date / Time No Known Allergies Allergy Verified 10/24/17 15:23 Date of last physical exam: 10/19/17 Concur with the findings of this exam: Yes - Substance Abuse/Tx History Hx Alcohol Use: No Hx Substance Use: Yes Substance Use Type: Cocaine (30 years of crack use daily for $10 ), Heroin (25 year h/o using 30 bags daily ) Hx Substance Use Treatment: Yes ([facility] detox.) Mental Status Exam - Mental Status Exam Alert and Oriented to: Time, Place, Person Cognitive Function: Good Patient Appearance: Well Groomed Mood: Depressed, Sad, Anxious Affect: Appropriate, Mood Congruent Patient Behavior: Appropriate, Cooperative Speech Pattern: Clear, Appropriate Voice Loudness: Normal Thought Process: Intact, Goal Oriented Thought Disorder: Not Present Hallucinations: Denies Suicidal Ideation: Denies Homicidal Ideation: Denies Insight/Judgement: Fair Sleep: Poorly, Difficulty falling asleep Appetite: Fair Muscle strength/Tone: Normal Psychiatric Findings - Problem List ([place] 1, 2,3) (1) Cocaine dependence Current Visit: No Status: Active (2) Opioid dependence Current Visit: No Status: Active (3) Insomnia Current Visit: No Status: Acute Qualifiers: Insomnia type: unspecified Qualified Code(s): G47.00 - Insomnia, unspecified (4) Nicotine dependence Current Visit: No Status: Acute Qualifiers: Nicotine product type: cigarettes Substance use status: in withdrawal Qualified Code(s): F17.213 - Nicotine dependence, cigarettes, with withdrawal (5) Substance induced mood disorder Current Visit: No Status: Acute - Initial Treatment Plan Initial Treatment Plan: will restart Paxil 10 mg po daily, add Belsomra 10 mg hs for insomnia, continue to monitor progress. Side-effects/benefits discussed.
[2017-10-25] MEDS: THIAMINE HCL 100 MG TABLET (FP) PO SCH (21:10)
[2017-10-25] MEDS: SUVOREXANT 10 MG TABLET PO SCH (21:10)
[2017-10-25] MEDS ORDERED: AMITRIPTYLINE HCL 25 MG TABLET (FP) PO SCH (22:00)
[2017-10-25] MEDS ORDERED: SUVOREXANT 10 MG TABLET PO SCH (22:00)
[2017-10-26] MEDS: GABAPENTIN 300 MG CAPSULE (FP) PO SCH ×3 (06:31→21:19)
[2017-10-26] MEDS: hydrOXYzine PAMOATE 50 MG CAPSULE (FP) PO PRN ×3 (06:32→18:03)
[2017-10-26] MEDS: PARoxetine HCL 10 MG TABLET (FP) PO SCH (09:57)
[2017-10-26] MEDS: PRENATAL VITAMINS W/ FOLIC ACID TABLET (FP) PO SCH (09:57)
[2017-10-26] MEDS: NICOTINE 21 MG/24 HOURS TOPICAL PATCH TD SCH (09:58)
--- NOTE | 2017-10-26 17:11 | PN ---
S Progress Note Note: Patient complains of withdrawal symptoms: anxiety, nasal congestion, diarrhea and yawning. Vital Signs Temperature 98.3 F 10/26/17 06:56 Pulse Rate 63 10/26/17 06:56 Respiratory Rate 18 10/26/17 06:56 Blood Pressure 112/72 10/26/17 06:56 O2 Sat by Pulse Oximetry (%) Obj: alert and oriented x 3. Skin warm and dry. Mild anxiety. + clear nasal discharge. Yawned x 2. Abd soft, BS+, [place] A/P withdrawal symptoms Pt previously treated with suboxone. Verified I stop reference ID [id number] 8 mg of suboxone. Will start Suboxone 2mg tomorrow and monitor clinically
[2017-10-26] MEDS: SUVOREXANT 10 MG TABLET PO SCH (21:19)
[2017-10-26] MEDS: THIAMINE HCL 100 MG TABLET (FP) PO SCH (21:19)
[2017-10-27] MEDS: hydrOXYzine PAMOATE 50 MG CAPSULE (FP) PO PRN (06:41)
[2017-10-27] MEDS: GABAPENTIN 300 MG CAPSULE (FP) PO SCH ×3 (06:41→21:15)
[2017-10-27] MEDS: BUPRENORPHINE/NALOXONE 2 MG/0.5 MG FILM PACKET SL SCH ×2 (08:55→09:53)
[2017-10-27] MEDS: PRENATAL VITAMINS W/ FOLIC ACID TABLET (FP) PO SCH (09:52)
[2017-10-27] MEDS: NICOTINE 21 MG/24 HOURS TOPICAL PATCH TD SCH (09:52)
[2017-10-27] MEDS: NAPROXEN 500 MG TABLET (FP) PO SCH ×2 (09:52→21:15)
[2017-10-27] MEDS: NICOTINE POLACRILEX 2 MG GUM BUC PRN (09:52)
[2017-10-27] MEDS: PARoxetine HCL 10 MG TABLET (FP) PO SCH (09:52)
[2017-10-27] MEDS ORDERED: BUPRENORPHINE/NALOXONE 2 MG/0.5 MG FILM PACKET SL SCH (10:00)
--- NOTE | 2017-10-27 11:21 | PN ---
[facility] Progress Note (SOAP) Subjective: patient requesting mat w suboxone for protracted opioid withdrwal sx Objective: 10/27/17 11:18 Vital Signs - 24 hr 10/27/17 10/27/17 10/27/17 00:30 03:30 06:30 Temperature 98.4 F Pulse Rate 62 Respiratory 18 18 20 Rate Blood Pressure 131/77 labs reviewed. Assessment: 10/27/17 11:19 oud, severe - start MAT w suboxone Kem Shipman Date: 1970 Address: [address] [place] [id number] Sex: Male Rx Written Rx Dispensed Drug Quantity Days Supply Prescriber Name 10/03/2017 10/07/2017 suboxone 8 mg-2 mg sl film 60 20 Robyn Olson MD 09/26/2017 09/27/2017 suboxone 8 mg-2 mg sl film 30 10 Avani Humphrey Patient Name: Kem Shipman Date: 1970 Address: [address] [place] [address] Sex: Male Rx Written Rx Dispensed Drug Quantity Days Supply Prescriber Name 10/05/2017 10/05/2017 chlordiazepoxide 10 mg capsule 36 4 Warren Cobos MD 10/05/2017 10/05/2017 suboxone 8 mg-2 mg sl film 9 3 Warren Cobos MD Patient Name: Kem Shipman Date: 1970 Address: [address] [place] [address] Sex: Male Rx Written Rx Dispensed Drug Quantity Days Supply Prescriber Name 09/15/2017 09/15/2017 suboxone 8 mg-2 mg sl film 45 15 Tawana Wren 09/01/2017 09/01/2017 suboxone 8 mg-2 mg sl film 45 15 Tawana Wren 08/18/2017 08/18/2017 suboxone 8 mg-2 mg sl film 45 15 Tawana Wren will schedule appointment
[2017-10-27] MEDS ORDERED: BUPRENORPHINE/NALOXONE 2 MG/0.5 MG FILM PACKET SL ONE (11:22)
[2017-10-27] MEDS: cloNIDine HCL 0.1 MG TABLET PO SCH ×2 (11:50→21:15)
[2017-10-27] MEDS: CYCLOBENZAPRINE HCL 10 MG TABLET (FP) PO SCH ×2 (14:04→21:16)
[2017-10-27] MEDS: THIAMINE HCL 100 MG TABLET (FP) PO SCH (21:14)
[2017-10-27] MEDS: SUVOREXANT 10 MG TABLET PO SCH (21:15)
[2017-10-28] MEDS: CYCLOBENZAPRINE HCL 10 MG TABLET (FP) PO SCH ×3 (06:16→21:11)
[2017-10-28] MEDS: GABAPENTIN 300 MG CAPSULE (FP) PO SCH ×3 (06:16→21:11)
[2017-10-28] MEDS: NICOTINE 21 MG/24 HOURS TOPICAL PATCH TD SCH (10:05)
[2017-10-28] MEDS: PARoxetine HCL 10 MG TABLET (FP) PO SCH (10:05)
[2017-10-28] MEDS: NAPROXEN 500 MG TABLET (FP) PO SCH ×2 (10:05→21:11)
[2017-10-28] MEDS: PRENATAL VITAMINS W/ FOLIC ACID TABLET (FP) PO SCH (10:05)
[2017-10-28] MEDS: BUPRENORPHINE/NALOXONE 8 MG/2 MG FILM PACKET SL SCH (10:05)
[2017-10-28] MEDS: hydrOXYzine PAMOATE 50 MG CAPSULE (FP) PO PRN ×4 (10:07→23:01)
[2017-10-28] MEDS: NICOTINE POLACRILEX 2 MG GUM BUC PRN (12:28)
[2017-10-28] MEDS: THIAMINE HCL 100 MG TABLET (FP) PO SCH (21:11)
[2017-10-28] MEDS: SUVOREXANT 10 MG TABLET PO SCH (21:11)
[2017-10-29] MEDS: hydrOXYzine PAMOATE 50 MG CAPSULE (FP) PO PRN ×4 (06:23→20:33)
[2017-10-29] MEDS: CYCLOBENZAPRINE HCL 10 MG TABLET (FP) PO SCH ×3 (06:23→21:14)
[2017-10-29] MEDS: GABAPENTIN 300 MG CAPSULE (FP) PO SCH ×3 (06:23→21:14)
[2017-10-29] MEDS: NAPROXEN 500 MG TABLET (FP) PO SCH ×2 (09:40→21:14)
[2017-10-29] MEDS: PARoxetine HCL 10 MG TABLET (FP) PO SCH (09:41)
[2017-10-29] MEDS: PRENATAL VITAMINS W/ FOLIC ACID TABLET (FP) PO SCH (09:41)
[2017-10-29] MEDS: NICOTINE 21 MG/24 HOURS TOPICAL PATCH TD SCH (09:41)
[2017-10-29] MEDS: BUPRENORPHINE/NALOXONE 8 MG/2 MG FILM PACKET SL SCH (09:41)
[2017-10-29] MEDS: THIAMINE HCL 100 MG TABLET (FP) PO SCH (21:13)
[2017-10-29] MEDS: SUVOREXANT 10 MG TABLET PO SCH (21:14)
[2017-10-30] MEDS: GABAPENTIN 300 MG CAPSULE (FP) PO SCH ×3 (06:23→21:47)
[2017-10-30] MEDS: CYCLOBENZAPRINE HCL 10 MG TABLET (FP) PO SCH ×3 (06:23→21:47)
[2017-10-30] MEDS: hydrOXYzine PAMOATE 50 MG CAPSULE (FP) PO PRN ×4 (06:24→21:48)
[2017-10-30] MEDS: PRENATAL VITAMINS W/ FOLIC ACID TABLET (FP) PO SCH (09:35)
[2017-10-30] MEDS: PARoxetine HCL 10 MG TABLET (FP) PO SCH (09:35)
[2017-10-30] MEDS: NAPROXEN 500 MG TABLET (FP) PO SCH ×2 (09:35→21:47)
[2017-10-30] MEDS: BUPRENORPHINE/NALOXONE 8 MG/2 MG FILM PACKET SL SCH (09:36)
[2017-10-30] MEDS: NICOTINE 21 MG/24 HOURS TOPICAL PATCH TD SCH (09:36)
[2017-10-30] MEDS: NICOTINE POLACRILEX 2 MG GUM BUC PRN (14:54)
[2017-10-30] MEDS: THIAMINE HCL 100 MG TABLET (FP) PO SCH (21:47)
[2017-10-30] MEDS: SUVOREXANT 10 MG TABLET PO SCH (21:47)
[2017-10-31] MEDS: CYCLOBENZAPRINE HCL 10 MG TABLET (FP) PO SCH ×3 (06:24→21:06)
[2017-10-31] MEDS: GABAPENTIN 300 MG CAPSULE (FP) PO SCH ×3 (06:24→21:06)
[2017-10-31] MEDS: hydrOXYzine PAMOATE 50 MG CAPSULE (FP) PO PRN ×3 (06:24→20:23)
[2017-10-31] MEDS: NICOTINE POLACRILEX 2 MG GUM BUC PRN ×4 (07:46→21:08)
[2017-10-31] MEDS: BUPRENORPHINE/NALOXONE 8 MG/2 MG FILM PACKET SL SCH (10:13)
[2017-10-31] MEDS: NAPROXEN 500 MG TABLET (FP) PO SCH ×2 (10:13→21:06)
[2017-10-31] MEDS: PRENATAL VITAMINS W/ FOLIC ACID TABLET (FP) PO SCH (10:13)
[2017-10-31] MEDS: PARoxetine HCL 10 MG TABLET (FP) PO SCH (10:13)
[2017-10-31] MEDS: NICOTINE 21 MG/24 HOURS TOPICAL PATCH TD SCH (10:14)
[2017-10-31] MEDS: THIAMINE HCL 100 MG TABLET (FP) PO SCH (21:06)
[2017-10-31] MEDS: SUVOREXANT 10 MG TABLET PO SCH (21:07)
[2017-11-01] MEDS: hydrOXYzine PAMOATE 50 MG CAPSULE (FP) PO PRN ×4 (06:06→21:02)
[2017-11-01] MEDS: GABAPENTIN 300 MG CAPSULE (FP) PO SCH ×3 (06:06→21:02)
[2017-11-01] MEDS: CYCLOBENZAPRINE HCL 10 MG TABLET (FP) PO SCH ×3 (06:06→21:01)
[2017-11-01] MEDS: PRENATAL VITAMINS W/ FOLIC ACID TABLET (FP) PO SCH (10:08)
[2017-11-01] MEDS: PARoxetine HCL 10 MG TABLET (FP) PO SCH (10:08)
[2017-11-01] MEDS: NAPROXEN 500 MG TABLET (FP) PO SCH ×2 (10:08→21:01)
[2017-11-01] MEDS: BUPRENORPHINE/NALOXONE 8 MG/2 MG FILM PACKET SL SCH (10:08)
[2017-11-01] MEDS: NICOTINE 21 MG/24 HOURS TOPICAL PATCH TD SCH (10:11)
[2017-11-01] MEDS: NICOTINE POLACRILEX 2 MG GUM BUC PRN (10:11)
--- NOTE | 2017-11-01 15:56 | PN ---
[facility] Progress Note Note: Patient on suboxone maintenance therapy on 24mg qd. Patient is link to Dr. Wren at [address] [place] [address], and has a follow appointment on 11/26/17 for aftercare. Vital Signs Temperature 97.9 F 11/01/17 06:50 Pulse Rate 71 11/01/17 06:50 Respiratory Rate 18 11/01/17 06:50 Blood Pressure 125/82 11/01/17 06:50 O2 Sat by Pulse Oximetry (%)
[2017-11-01] MEDS: THIAMINE HCL 100 MG TABLET (FP) PO SCH (21:01)
[2017-11-02] MEDS: GABAPENTIN 300 MG CAPSULE (FP) PO SCH (06:05)
[2017-11-02] MEDS: hydrOXYzine PAMOATE 50 MG CAPSULE (FP) PO PRN (06:05)
[2017-11-02] MEDS: CYCLOBENZAPRINE HCL 10 MG TABLET (FP) PO SCH (06:05)
[2017-11-02 06:55] VITALS: BP 132/72; PULSE 65; TEMP 97.8
--- NOTE | 2017-11-02 08:38 | PN ---
Psychiatric Progress Note Vital Signs: Vital Signs Period Temp Pulse Resp BP Sys/Keller Pulse Ox Last 24 Hr 97.8 F 65 16-18 132/72 Date of Session: 11/02/17 Chief Complaint:: discharge visit HPI: Patient has addressed cocaine, opioid,nicotine dependence comorbid substance induced mood disorder, insomnia. ROS: WNL Current Medications: Active Medications Generic Name Dose Route Start Last Admin Trade Name Freq PRN Reason Stop Dose Admin Acetaminophen 650 mg 10/24/17 13:14 11/01/17 15:51 Tylenol - PO 650 mg Q4H PRN Administration FEVER Al Hydroxide/Mg Hydroxide 30 ml 10/24/17 13:14 Mylanta Oral Suspension - PO Q6H PRN DYSPEPSIA Buprenorphine/Naloxone 1 each 10/28/17 10:00 11/01/17 10:08 Suboxone 8mg/2mg Sl Film - SL 11/03/17 09:59 1 each DAILY CHARIS Administration Cyclobenzaprine HCl 10 mg 10/27/17 14:00 11/02/17 06:05 Flexeril - PO 10 mg TID CHARIS Administration Eucalyptus/Menthol/Phenol/Sorbitol 1 each 10/24/17 13:14 Cepastat Lozenge - MM Q4H PRN SORE THROAT Gabapentin 300 mg 10/24/17 15:45 11/02/17 06:05 Neurontin - PO 300 mg TID CHARIS Administration Guaifenesin 10 ml 10/24/17 13:14 Robitussin Dm - PO Q6H PRN COUGH Hydroxyzine Pamoate 50 mg 10/24/17 15:49 11/02/17 06:05 Vistaril - PO 50 mg Q4H PRN Administration ANXIETY Loperamide HCl 4 mg 10/24/17 13:14 Imodium - PO Q6H PRN DIARRHEA Magnesium Citrate 300 ml 10/24/17 13:14 Citroma - PO Q48H PRN CONSTIPATION Magnesium Hydroxide 30 ml 10/24/17 13:14 Milk Of Magnesia - PO DAILY PRN CONSTIPATION Naproxen 500 mg 10/27/17 10:00 11/01/17 21:01 Naprosyn - PO 500 mg BID CHARIS Administration Nicotine 21 mg 10/25/17 10:00 11/01/17 10:11 Nicoderm Patch - TD Not Given DAILY CHARIS Nicotine Polacrilex 2 mg 10/24/17 13:14 04/10/18 10:11 Nicorette Gum - BUC 2 mg Q2H PRN Administration NICOTINE REPLACEMENT RX Paroxetine HCl 10 mg 10/26/17 10:00 11/01/17 10:08 Paxil - PO 10 mg DAILY CHARIS Administration Multivit/Folic Acid/Iron 1 tab 10/25/17 10:00 11/01/17 10:08 Vitamins (Sjr) - PO 1 tab DAILY CHARIS Administration Pseudoephedrine/Triprolidine 1 combo 10/24/17 13:14 Actifed - PO TID PRN NASAL CONGESTION Thiamine HCl 100 mg 10/24/17 22:00 11/01/17 21:01 Vitamin B1 - PO 100 mg HS CHARIS Administration Current Side Effect: No Lab tests ordered: No Lab tests reviewed: Yes Provider note:: Patient has completed today his treatment and met his identified goals, will continue to address his issues at [facility] patient treatment program, he will f/u at [address] [place] [address] with . He gained insights into his addiction, verbalized that he is motivated to continue maintain abstinence. Patient continues to finding Paxil helpfull, no side-effects reported, scripts provided for 30 days, patient was encouraged to utilize all supports available to prevent relapses, stable for discharge today. Total face to face time:: 20 Mental Status Exam - Mental Status Exam Alert and Oriented to: Time, Place, Person Cognitive Function: Good Patient Appearance: Well Groomed Mood: Hopeful Affect: Appropriate, Mood Congruent Patient Behavior: Appropriate, Cooperative Speech Pattern: Clear, Appropriate Voice Loudness: Normal Thought Process: Intact, Goal Oriented Thought Disorder: Not Present Hallucinations: Denies Suicidal Ideation: Denies Homicidal Ideation: Denies Insight/Judgement: Fair Sleep: Fair Appetite: Fair Muscle strength/Tone: Normal Gait/Station: Normal Psychiatric Treatment Plan - Problem List (1) Cocaine dependence Current Visit: No (2) Opioid dependence Current Visit: Yes (3) Insomnia Current Visit: No Qualifiers: Insomnia type: unspecified Qualified Code(s): G47.00 - Insomnia, unspecified (4) Nicotine dependence Current Visit: No Qualifiers: Nicotine product type: cigarettes Substance use status: in withdrawal Qualified Code(s): F17.213 - Nicotine dependence, cigarettes, with withdrawal (5) Substance induced mood disorder Current Visit: No
[2017-11-02] MEDS: PRENATAL VITAMINS W/ FOLIC ACID TABLET (FP) PO SCH (09:19)
[2017-11-02] MEDS: BUPRENORPHINE/NALOXONE 8 MG/2 MG FILM PACKET SL SCH (09:19)
[2017-11-02] MEDS: PARoxetine HCL 10 MG TABLET (FP) PO SCH (09:19)
[2017-11-02] MEDS: NICOTINE 21 MG/24 HOURS TOPICAL PATCH TD SCH (09:19)
[2017-11-02] MEDS: NAPROXEN 500 MG TABLET (FP) PO SCH (09:19)
== END 2017-11-02 09:15 | disposition home or self-care (01) | DRG 772 ==
LOC: YASAS 14:57 → Y5N 14:58
PROVIDERS: ADMIT Psychiatry & Neurology Psychiatry; ATTEND Psychiatry & Neurology Psychiatry
PROC: HZ42ZZZ Group Counseling for Substance Abuse Treatment, Cognitive-Behavioral (ICD-10-PCS; principal; 2017-10-24)
DX: F11.23 Opioid dependence with withdrawal (principal); F14.20 Cocaine dependence, uncomplicated; F17.213 Nicotine dependence, cigarettes, with withdrawal; F19.24 Other psychoactive substance dependence with psychoactive substance-induced mood disorder; F41.9 Anxiety disorder, unspecified; F32.9 Major depressive disorder, single episode, unspecified; G47.00 Insomnia, unspecified; G62.9 Polyneuropathy, unspecified; R76.11 Nonspecific reaction to tuberculin skin test without active tuberculosis
CPT/HCPCS: J0735